=== PATIENT | male | born 1965 | race African-American/Black ===

== ENCOUNTER 2017-01-08 06:15 | Emergency (ER) | payer OTHER, MEDICAID ==
[~2017-01-08] VITALS: Ht 185.4 cm; Wt 73.5 kg
[~2017-01-08 06:15] MED LIST: ASPIR-LOW81 MG PO; BACTRIM DS TAB1 EAC1 ORAL; BACTRIM SINGLE S1 EA PO; BACTROBAN 2% OI15 GM TOP; CEPHALEXIN500 MG ORAL; CLARITIN5 MG PO; CLEOCIN150 MG PO; GABAPENTIN300 MG PO; IBUPROFEN800 MG ORAL; ISENTRESS400 MG PO; KADIAN50 MG PO; LIORESAL10 MG PO; LIORESAL20 MG PO; MORPHINE S10 MG/5 ML PO; NORCO 5-325 TA1 EACH ORAL; PSEUDOEPHEDRINE60 MG PO; TRAZODONE HCL100 MG PO; TRUVADA1 TAB PO; VICODIN 5-5001 EACH PO
[2017-01-08 06:30] VITALS: BP 140/93
[2017-01-08] MEDS ORDERED: Ipratropium 0.02% Inh Soln 2.5ml UD HHN ONE (06:45)
[2017-01-08] MEDS ORDERED: Albuterol ud Inhalation HHN ONE (06:45)
[2017-01-08] MEDS ORDERED: PredniSONE 20mg tab ORAL ONE (06:45)
[2017-01-08] MEDS ORDERED: PREDNISONE20 MG ORAL (07:35)
[2017-01-08 07:48] VITALS: BP 132/86
--- NOTE | 2017-01-08 08:36 | Emergency Room Report ---
History of Present Illness General Chief Complaint: Asthma Source: Patient Present Illness HPI 51-year-old male presents ED for evaluation. 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 states that is triggering his asthma times one week. Denies any fevers or chills. Denies chest pain. Cough is dry. Patient is concerned that he may have asbestos exposure. Denies sick contacts or recent travel. No other aggravating or relieving factors. Denies any other associated symptoms Allergies: Coded Allergies: No Known Allergies (Unverified , 09/12/12) Patient History Past Medical History: asthma Past Surgical History: none Pertinent Family History: none Social History: Denies: alcohol use, drug use, smoking Immunizations: UTD Reviewed Nursing Documentation: PMH: Agreed, PSxH: Agreed Nursing Documentation-PMH Past Medical History: No History, Except For Hx Asthma: Yes Review of Systems All Other Systems: negative except mentioned in HPI Physical Exam Vital Signs Date Time Temp Pulse Resp B/P Pulse Ox O2 Delivery O2 Flow Rate FiO2 01/08/17 06:21 97.9 94 16 140/93 96 Room Air Sp02 EP Interpretation: reviewed, normal General Appearance: no apparent distress, alert, GCS 15, non-toxic Head: normocephalic Eyes: bilateral eye PERRL, bilateral eye normal inspection ENT: normal ENT inspection Neck: normal inspection Respiratory: wheezing Cardiovascular #1: regular rate, rhythm, no edema Gastrointestinal: normal inspection Rectal: deferred Genitourinary: no CVA tenderness Musculoskeletal: normal inspection Neurologic: alert, oriented x3, responsive, motor strength/tone normal, sensory intact, speech normal Psychiatric: normal inspection Skin: normal inspection Lymphatic: normal inspection Medical Decision Making Diagnostic Impression: Primary Impression: Asthma Qualified Codes: J45.901 - Unspecified asthma with (acute) exacerbation ER Course Hospital Course 51-year-old male presents to ED complaining of cough, wheezing Differential diagnoses include: URI, bronchitis, asthma/COPD, pneumonia Clinical course Patient placed on stretcher. After initial history, physical exam reveals a middle aged male in no acute distress. Bilateral TM unremarkable. No pharyngeal erythema. No tonsillar exudates. No lymphadenopathy. Mild wheezing noted on exam, no signs of respiratory distress or retractions. Patient given Predone and albuterol treatment in ED Chest x-ray unremarkable On reassessment symptoms improved. I explained to the patient there is no blood test for asbestos. Workup starts with chest x-ray. Patient will be to followup with PMD for additional testing such as pulmonary function tests and possible CT chest Patient agrees to plan Diagnosis - asthma exacerbation Stable and discharged home with prescriptions for prednisone. Instructed to followup with PMD. Return to ED if symptoms recur or worsen Chest X-Ray Diagnostic Results EP Interpretation: Yes Findings: no consolidation, no effusion, no pneumothorax, no acute cardiopulmonary disease Number of Views: 1 Last Vital Signs Date Time Temp Pulse Resp B/P Pulse Ox O2 Delivery O2 Flow Rate FiO2 01/08/17 07:48 97.9 95 14 132/86 100 Room Air Status: improved Disposition: HOME, SELF-CARE Condition: Stable Scripts Prednisone* (PREDNISONE*) 20 Mg Tablet 40 MG ORAL DAILY, #10 TAB Prov: RODERICK LOWRY M.D. 01/08/17 Referrals: NON PHYSICIAN (PCP) Patient Instructions: Asthma, Adult RODERICK LOWRY M.D. Jan 08, 2017 08:36
--- NOTE | 2017-01-08 10:46 | Diagnostic Imaging Report ---
Indication: COUGH Technique: One view of the chest Comparison: Of 29,012 Findings: Lungs and pleural spaces are clear. Heart size is normal. Previously demonstrated right basilar atelectasis is no longer evident Impression: No acute process
== END 2017-01-08 07:50 | disposition home or self-care (01) ==
LOC: EMR 06:58
DX: J45.901 Unspecified asthma with (acute) exacerbation (principal)
CPT/HCPCS: 71010; 94640; 94664; 99283

== ENCOUNTER 2018-11-11 14:22 | Emergency (ER) | payer OTHER, MEDICAID ==
[~2018-11-11] VITALS: Ht 188 cm; Wt 68.0 kg
[~2018-11-11 14:22] MED LIST changes: +PREDNISONE20 MG ORAL
[2018-11-11] MEDS ORDERED: Ketorolac 30mg Inj IV ONE (14:45)
--- NOTE | 2018-11-11 14:45 | NUR ---
ED Nurse Note: patient was brought in by his neighbor, complaining of severe lower right abdominal pain. patient is ambulatory, AAO x 4, skin is dry, intact, warm to touch. per patient he has this pain almost one week, and today pain becom intolerable. patient was connected to the monitor, will continue to monitor.
[2018-11-11 14:50] VITALS: BP 157/100
[2018-11-11 15:05] LABS: BASOPHILS % (AUTO) 1.4 % (0.0-2.0); EOSINOPHILS % (AUTO) 1.6 % (0.0-3.0); HEMATOCRIT 56.3 % (42.0-52.0); LYMPHOCYTES % (AUTO) 20.8 % (20.0-45.0); MEAN CORPUSCULAR VOLUME 89 FL (80-99); MONOCYTES % (AUTO) 8.7 % (1.0-10.0); NEUTROPHILS % (AUTO) 67.5 % (45.0-75.0); PLATELET COUNT 289 K/UL (150-450); RED CELL DISTRIBUTION WIDTH 12.6 % (11.6-14.8); WHITE BLOOD COUNT 12.4 K/UL (4.8-10.8)
--- NOTE | 2018-11-11 15:05 | Emergency Room Report ---
History of Present Illness General Chief Complaint: Pain Source: Patient Present Illness HPI 53-year-old male patient presents the ER complaining of right flank pain since yesterday. Reports pain is sharp in intensity. Denies radiation of pain symptoms. Denies fever, chest pain, shortness of breath, vomiting, diarrhea. Denies abdominal pain. Denies dysuria, hematuria. Denies history of kidney stones. Denies history of diabetes or kidney disease. Denies recent injury or trauma. Denies worsening of pain with movement. Reports staying in a "hunched position" helps to alleviate the pain symptoms. Denies other aggravating or relieving factors. Reports history of smoking. Reports history of HIV, states CD4 count is normal, viral load is undetectable. Allergies: Coded Allergies: No Known Allergies (Unverified , 09/12/12) Patient History Past Medical History: see triage record Reviewed Nursing Documentation: PMH: Agreed; PSxH: Agreed Nursing Documentation-PMH Past Medical History: No History, Except For Hx Asthma: Yes Review of Systems All Other Systems: negative except mentioned in HPI Physical Exam Vital Signs Date Time Temp Pulse Resp B/P (MAP) Pulse Ox O2 Delivery O2 Flow Rate FiO2 11/11/18 14:32 98.4 94 20 154/105 98 Room Air Sp02 EP Interpretation: reviewed, normal General Appearance: well appearing, no apparent distress, alert, GCS 15, non- toxic Head: normocephalic, atraumatic Eyes: bilateral eye normal inspection, bilateral eye PERRL ENT: hearing grossly normal, normal pharynx, no angioedema, normal voice, uvula midline, moist mucus membranes Neck: full range of motion Respiratory: lungs clear, normal breath sounds, no rhonchi, no respiratory distress, no accessory muscle use, no wheezing, speaking full sentences Cardiovascular #1: regular rate, rhythm, no edema Gastrointestinal: non tender, soft, no mass, non-distended, no guarding, no rebound Genitourinary: no CVA tenderness Musculoskeletal: back normal, digits/nails normal, gait/station normal, normal range of motion, non-tender Neurologic: alert, oriented x3, responsive, motor strength/tone normal, sensory intact Psychiatric: mood/affect normal Skin: no rash Medical Decision Making PA Attestation Dr. Nguyen is my supervising Physician whom patient management has been discussed with. Diagnostic Impression: Primary Impression: Flank pain Additional Impressions: Enteritis Lung neoplasm Urinary tract infection Elevated lipase ER Course Pt. presents to the ED c/o right-sided flank pain. Ddx considered but are not limited to UTI, for cystitis, nephrolithiasis, hydronephrosis, SBO, gastritis, enteritis, HIV complications. Begin abdominal pain workup. Provided patient with pain medication. Vital signs: are WNL, pt. is afebrile ORDERS: CBC, CMP, Lipase, UA, CT abdomen pelvis, and pain medication. ER COURSE: CBC and CMP Elevated lipase, denies abdominal pain or vomiting, low suspicion for pancreatitis UA CT shows CXR shows infrahilar mass vs infiltrate, right hilar adenopathy, discussed results with patient, instructed to followup with PCP for CT chest for further evaluation. Spoke with Patient primary care provider Dr. Cheng. Discuss CT and labs results with her, states to have patient followup with her in clinic on Friday. will followup on chest mass. Patient denies chest pain, SOB, denies fever, afebrile in the ER, low suspicion for pneumonia, does not require abx at this time. DISCHARGE: At this time pt. is stable for d/c to home. Patient resting comfortably, in no acute distress, nontoxic appearing, talking without difficulty. Rx provided to patient. Patient to take medications as instructed Will provide with patient care instructions and any necessary prescriptions. Care plan and follow-up instructions provided. Patient instructed to follow-up with primary care provider in 3 - 5 days. Patient questions asked and answered. Patient reports understanding and agreement to treatment plan. ER precautions given. Patient instructed to return to ER immediately for any new or worsening of symptoms including but not limited to increasing SOB, persistent fever, worsening of pain symptoms, intractable vomiting, blood in stool, urine, and/or emesis. - Please note that this Emergency Department Report was dictated using [employer] assembler technology software, occasionally this can lead to erroneous entry secondary to interpretation by the dictation equipment. Labs Test 11/11/18 14:30 White Blood Count 12.4 K/UL (4.8-10.8) Red Blood Count 6.30 M/UL (4.70-6.10) Hemoglobin 18.6 G/DL (14.2-18.0) Hematocrit 56.3 % (42.0-52.0) Mean Corpuscular Volume 89 FL (80-99) Mean Corpuscular Hemoglobin 29.5 PG (27.0-31.0) Mean Corpuscular Hemoglobin Concent 33.0 G/DL (32.0-36.0) Red Cell Distribution Width 12.6 % (11.6-14.8) Platelet Count 289 K/UL (150-450) Mean Platelet Volume 5.9 FL (6.5-10.1) Neutrophils (%) (Auto) 67.5 % (45.0-75.0) Lymphocytes (%) (Auto) 20.8 % (20.0-45.0) Monocytes (%) (Auto) 8.7 % (1.0-10.0) Eosinophils (%) (Auto) 1.6 % (0.0-3.0) Basophils (%) (Auto) 1.4 % (0.0-2.0) Sodium Level 135 MMOL/L (136-145) Potassium Level 3.9 MMOL/L (3.5-5.1) Chloride Level 99 MMOL/L (98-107) Carbon Dioxide Level 28 MMOL/L (21-32) Anion Gap 8 mmol/L (5-15) Blood Urea Nitrogen 13 mg/dL (7-18) Creatinine 1.2 MG/DL (0.55-1.30) Estimat Glomerular Filtration Rate > 60 mL/min (>60) Glucose Level 113 MG/DL (74-106) Calcium Level 9.7 MG/DL (8.5-10.1) Total Bilirubin 0.4 MG/DL (0.2-1.0) Aspartate Amino Transf (AST/SGOT) 32 U/L (15-37) Alanine Aminotransferase (ALT/SGPT) 21 U/L (12-78) Alkaline Phosphatase 107 U/L (46-116) Total Protein 9.4 G/DL (6.4-8.2) Albumin 3.8 G/DL (3.4-5.0) Globulin 5.6 g/dL Albumin/Globulin Ratio 0.7 (1.0-2.7) Lipase 657 U/L (73-393) Chest X-Ray Diagnostic Results Chest X-Ray Diagnostic Results : Chest X-Ray Ordered: Yes # of Views/Limited/Complete: 1 View Indication: Chest Pain EP Interpretation: Yes PA Xray: Interpretation reviewed, by supervising , and agrees with findings. Interpretation: no consolidation, no effusion, no pneumothorax Impression: Other - right infrahilar mass versus infiltrate, right hilar adenopathy GREG Doyle Text Basil Hayes PA-C CT/MRI/US Diagnostic Results CT/MRI/US Diagnostic Results : Imaging Test Ordered: CT abdomen pelvis Impression Partially imaged ill-defined 6 cm masslike density right medial lung base suspicious for neoplasm. Further evaluation is recommended. Surrounding infiltrate noted. Superimposed pneumonia not excluded. Suggestion of enteritis with mild fluid-filled small bowel in the lower abdomen. Atherosclerotic disease. Last Vital Signs Date Time Temp Pulse Resp B/P (MAP) Pulse Ox O2 Delivery O2 Flow Rate FiO2 11/11/18 14:32 98.4 94 20 154/105 98 Room Air Status: improved Disposition: HOME, SELF-CARE Condition: Stable Scripts Acetaminophen* (TYLENOL EXTRA STRENGTH*) 500 Mg Tablet 500 MG ORAL Q8H PRN for Prn Headache/Temp > 101, #30 TAB 0 Refills Prov: Darius Hayes 11/11/18 Metronidazole* (FLAGYL*) 500 Mg Tablet 500 MG ORAL THREE TIMES A DAY, #21 TAB 0 Refills Prov: Darius Hayes 11/11/18 Ciprofloxacin Hcl* (CIPROFLOXACIN HCL*) 500 Mg Tablet 500 MG ORAL EVERY 12 HOURS for 10 Days, #20 TAB 0 Refills Prov: Darius Hayes 11/11/18 Patient Instructions: Flank Pain, [id number], Lung Biopsy, Urinary Tract Infection, [id number] Additional Instructions: Followup with primary care provider in clinic on Friday, call on to schedule appointment time. Take Tylenol for pain symptoms. Drink plenty of fluids. Do not drink alcohol while taking medication. Take medications as directed. Patient questions asked and answered. ER precautions given, patient instructed to return to ER immediately for any new or worsening of symptoms. Darius Hayes Nov 11, 2018 15:05
--- NOTE | 2018-11-11 15:07 | NUR ---
ED Nurse Note: patient went down for CT
[2018-11-11 15:19] LABS: ANION GAP 8 mmol/L (5-15); BLOOD UREA NITROGEN 13 mg/dL (7-18); CALCIUM 9.7 MG/DL (8.5-10.1); CARBON DIOXIDE 28 MMOL/L (21-32); CHLORIDE 99 MMOL/L (98-107); CREATININE 1.2 MG/DL (0.55-1.30); POTASSIUM 3.9 MMOL/L (3.5-5.1); SODIUM 135 MMOL/L (136-145)
[2018-11-11 15:23] LABS: HEMOGLOBIN 18.6 G/DL (14.2-18.0)
[2018-11-11 15:24] LABS: ALANINE AMINOTRANSFERASE 21 U/L (12-78); ALBUMIN 3.8 G/DL (3.4-5.0); ALBUMIN/GLOBULIN RATIO 0.7 (1.0-2.7); ALKALINE PHOSPHATASE 107 U/L (46-116); ASPARTATE AMINO TRANSFERASE 32 U/L (15-37); BILIRUBIN,TOTAL 0.4 MG/DL (0.2-1.0)
--- NOTE | 2018-11-11 15:45 | NUR ---
ED Nurse Note: patient is back, no acute disstress VSS at this time, AAO x 4.
[2018-11-11 15:53] VITALS: BP 36/95
--- NOTE | 2018-11-11 16:17 | Diagnostic Imaging Report ---
Indication: Abdominal pain Technique: Continuous helical transaxial imaging of the abdomen and pelvis was obtained from the lung bases to the pubic symphysis. No intravenous contrast was administered. Coronal 2-D reformats were also obtained. Automatic Exposure Control was utilized. Total Dose length Product (DLP): [address] Dose Index Volume (CTDIvol): 0.15, 9.64 mGy Comparison: none Findings: There is a partially imaged 6 cm mass at the right lung base suspicious for neoplasm. Surrounding reticular densities noted. There is a relative paucity of intra-abdominal fat which significantly limits evaluation as does the nonadministration of IV and oral contrast, which is essential in evaluation of tumor or infection/inflammatory processes. There is no nephrolithiasis or hydronephrosis. There is a moderate degree of retention of fecal material in the colon. There is a suggestion of mildly distended small fluid-filled small bowel within the lower abdomen and pelvis. Aorta is moderately calcified. The appendix is probably identified and as visualized appears normal. There is a small right inguinal hernia containing fat. IMPRESSION: Partially imaged ill-defined 6 cm masslike density right medial lung base suspicious for neoplasm. Further evaluation is recommended. Surrounding infiltrate noted. Superimposed pneumonia not excluded. Suggestion of enteritis with mild fluid-filled small bowel in the lower abdomen. Atherosclerotic disease. Note: Very limited evaluation of the abdomen pelvis given some cachexia and moderate absence of intra-abdominal fat and the nonadministration of IV and oral contrast. The CT scanner at [facility] is accredited by the [employer] and the scans are performed using dose optimization techniques as appropriate to a performed exam including Automatic Exposure control.
--- NOTE | 2018-11-11 16:56 | NUR ---
Fax number for Dr. Cheng's office: .
[2018-11-11 17:54] VITALS: BP 135/76
[2018-11-11 18:58] LABS: APPEARANCE,URINE CLEAR; BILIRUBIN, URINE NEGATIVE (NEGATIVE); GLUCOSE, URINE (UA) NEGATIVE (NEGATIVE); KETONES,URINE 1+ (NEGATIVE); LEUKOCYTE ESTERASE ,URINE 1+ (NEGATIVE); NITRITE,URINE NEGATIVE (NEGATIVE); PH,URINE 6 (4.5-8.0); PROTEIN,URINE NEGATIVE (NEGATIVE); UROBILINOGEN,URINE 1 MG/DL (0.0-1.0)
[2018-11-11 18:59] LABS: COLOR,URINE YELLOW
--- NOTE | 2018-11-11 19:56 | NUR ---
ED Nurse Note: Patient refused to stay in room. Pulled out IV. Awaiting discharge papaers. Waiting in the waiting room. ERMD aware and gave permission to wait in waiting room. inside sales administrator made aware.
[2018-11-11] MEDS ORDERED: TYLENOL EXTRA500 MG ORAL (20:03)
[2018-11-11] MEDS ORDERED: CIPROFLOXACIN500 M2 ORAL (20:03)
[2018-11-11] MEDS ORDERED: METRONIDAZOLE500 MG ORAL (20:03)
[2018-11-11 20:15] VITALS: BP 135/76
--- NOTE | 2018-11-11 20:15 | NUR ---
ED Nurse Note: Patient cleared cleared for discharge per ERMD. AO4. NAD. VSS. Accompanied by family member. Patient given prescriptions and discharge instructions; verbalized understanding. ID removed. Patient ambulated steady out of ED with all belongings.
--- NOTE | 2018-11-12 12:27 | Diagnostic Imaging Report ---
Indication: Chest pain Technique: One view of the chest Comparison: 01/08/2017 Findings: 4.5 x 6.1 cm dense opacity in the right infrahilar region is noted. There is some hazy opacity peripheral to this as well as some atelectasis. There is suggestion of right hilar adenopathy. The pleural spaces and left lung are clear. The heart size is normal. Impression: Right infrahilar mass versus infiltrate Right hilar adenopathy Recommend CT scan for further evaluation. Right infrahilar mass versus infiltrate, not evident on prior study of 01/08/2017. Recommend further evaluation with chest CT if this has not been worked up previously. This was described on abdominal CT performed one hour earlier and is noted in the electronic medical record for this visit by the ER physician Right hilar adenopathy
== END 2018-11-11 20:15 | disposition home or self-care (01) ==
LOC: EMR 15:00
DX: K52.9 Noninfective gastroenteritis and colitis, unspecified (principal); N39.0 Urinary tract infection, site not specified; D49.1 Neoplasm of unspecified behavior of respiratory system; R79.89 Other specified abnormal findings of blood chemistry; J45.909 Unspecified asthma, uncomplicated
CPT/HCPCS: 36415; 71045; 74176; 80053; 81003; 83690; 85025; 96361; 96374; 99284; J1885